=== PATIENT | male | born 1940 ===

== ENCOUNTER 2022-05-08 05:00 | Day surgery (SDC) | payer OTHER ==
[~2022-05-08] VITALS: Ht 185.4 cm; Wt 81.6 kg
[~2022-05-08 05:00] MED LIST: AVAPRO300 MG PO; CADUET 5 MG-101 EACH PO; COSOPT PF EYE1 EACH OP; PRILOSEC OTC20 MG PO
[2022-05-08] MEDS ORDERED: DORZOLAMIDE-TIM10 ML (09:31)
[2022-05-08] MEDS ORDERED: DICLOFENAC SODI75 MG PO (10:47)
[2022-05-08] MEDS ORDERED: ULTRACET PO (10:47)
[2022-05-08] MEDS ORDERED: DICY20TA PO (10:48)
[2022-05-08] MEDS ORDERED: PROTONIX40 MG PO (10:48)
== END 2022-05-08 13:20 | disposition home or self-care (01) ==
LOC: CIR.AMB 05:00 → O/R 05:00 → SURH 05:00 → EDSTATUS 11:15 → CIR.AMB 11:15 → O/R 11:39 → SURH 11:39 → O/R 11:51 → CIR.AMB 13:20 → O/R 13:20 → SURH 18:30
PROVIDERS: ATTEND Surgery
DX: K36 Other appendicitis (principal); Z20.822 Contact with and (suspected) exposure to COVID-19; K21.9 Gastro-esophageal reflux disease without esophagitis; F10.21 Alcohol dependence, in remission